=== PATIENT | male | born 1940 | race Asian ===

== ENCOUNTER 2024-10-09 15:06 | Emergency (ER) | payer MEDICARE, MEDICAID ==
[~2024-10-09] VITALS: Ht 170.2 cm; Wt 65.5 kg
[2024-10-09] MEDS ORDERED: 0.9% SODIUM CHLORIDE 10 ML SYRINGE IVP PRN (15:30)
[2024-10-09] MEDS: CefTRIAXone 1 GM/DEXTROSE 50 ML IV ONE (15:33)
[2024-10-09] MEDS: SODIUM CHLORIDE 0.9% 1,000 ML IV ONE (15:33)
[2024-10-09] MEDS: ACETAMINOPHEN 500 MG TABLET PO ONE (15:33)
[2024-10-09 15:36] LABS: BASOPHILS % (AUTO) 0.6 % (0.0-2.0); EOSINOPHILS % (AUTO) 1.1 % (1.0-6.0); HEMATOCRIT 31.8 % (41-53); HEMOGLOBIN 10.4 g/dL (13.5-17.5); LYMPHOCYTES # (AUTO) 0.4 K/uL (1.0-4.8); LYMPHOCYTES % (AUTO) 2.6 % (22.0-44.0); MEAN CORPUSCULAR HEMOGLOBIN 30.4 pg (26.0-34.0); MEAN CORPUSCULAR HGB CONC 32.7 G/dL (31.0-37.0); MEAN CORPUSCULAR VOLUME 93 fL (80-100); MONOCYTES # (AUTO) 0.9 K/uL (0.1-1.0); MONOCYTES % (AUTO) 5.7 % (2.0-9.0); NEUTROPHILS # (AUTO) 14.6 K/uL (1.8-7.7); PLATELET COUNT (AUTO) 213 K/uL (150-450); RED BLOOD CELL COUNT(AUTO) 3.42 MIL/uL (4.50-5.90); RED CELL DISTRIBUTION WIDTH 15.9 % (11.5-14.5); WHITE BLOOD COUNT (AUTO) 16.2 K/uL (4.5-11.0)
[2024-10-09 15:47] LABS: ANION GAP 10 mmol/L (8-16); CALCIUM, TOTAL 8.9 mg/dL (8.8-10.5); CARBON DIOXIDE 30 mmol/L (22-29); CHLORIDE 92 mmol/L (98-107); CREATININE 5.34 mg/dL (0.60-1.30); GLOMERULAR FILTR. RATE CALC 10 mL/min (>60); GLUCOSE,RANDOM 164 mg/dL (70-110); POTASSIUM 3.4 mmol/L (3.5-5.1); SODIUM SERUM 132 mmol/L (136-145); UREA NITROGEN, BLOOD 31 mg/dL (7-18)
[2024-10-09 15:50] LABS: D-DIMER 1.38 mg/L FEU (0.00-0.50); PROTHROMBIN TIME 9.9 SEC (9.4-11.6)
[2024-10-09 15:53] LABS: LACTIC ACID 1.4 mmol/L (0.4-2.0); TROPONIN I-HIGH SENSITIVITY 17 ng/L (<76)
[2024-10-09 15:56] LABS: COVID AG,FIA SOURCE NASAL SWAB
[2024-10-09 16:00] LABS: B-TYPE NATRIURETIC PEPTIDE 1180 pg/mL (0-100)
[2024-10-09 16:02] LABS: PLATELET MORPHOLOGY COMMENT LARGE PLTS PRESENT; RBC MORPHOLOGY COMMENT NORMAL RBC MORPH
[2024-10-09 16:07] LABS: ALANINE AMINOTRANSFERASE 16 U/L (12-78); ALBUMIN 3.6 g/dL (3.4-5.0); ALKALINE PHOSPHATASE 81 U/L (46-116); ASPARTATE AMINOTRANSFERASE 15 U/L (15-37); BILIRUBIN,TOTAL 0.5 mg/dL (0.1-1.0); CREATINE KINASE, TOTAL ONLY 123 U/L (39-308); LIPASE 70 U/L (16-77); TOTAL PROTEIN, SERUM 7.6 g/dL (6.4-8.2)
[2024-10-09 16:42] LABS: INFLUENZA TYPE A NEGATIVE FOR TYPE A (NEGATIVE); INFLUENZA TYPE B NEGATIVE FOR TYPE B (NEGATIVE)
[2024-10-09 16:43] LABS: SARS-COV2 (COVID) ANTIGEN,FIA Negative (Negative)
[2024-10-09 17:23] VITALS: BP 168/59; PULSE 90; RESP 16; TEMP 98.1; O2SAT 97
[2024-10-09] MEDS ORDERED: LEVO250T75 PO (17:30)
== END 2024-10-09 17:50 | disposition left against medical advice (07) ==
LOC: EMS 15:06
DX: A41.9 Sepsis, unspecified organism (principal); N18.6 End stage renal disease; I12.0 Hypertensive chronic kidney disease with stage 5 chronic kidney disease or end stage renal disease; E11.22 Type 2 diabetes mellitus with diabetic chronic kidney disease; Z99.2 Dependence on renal dialysis; Z20.822 Contact with and (suspected) exposure to COVID-19
CPT/HCPCS: 99291; 96365; 71045; 87426; 80048; 80076; 82550; 83605; 83690; 83880; 84484; 85025; 85379; 85610; 85730; 87040; 87804; 36415; 93005; 84145; J0696; J7030